=== PATIENT | female | born 2000 | race Caucasian/White ===

== ENCOUNTER → 2024-05-20 | Day surgery (SDC) | payer MEDICAID, SELFPAY ==
[2024-05-19 12:40] VITALS: BMI 35.1
[2024-05-19 13:58] LABS: Basophils # (Auto) 0.1 Thou/mm3 (0.0-0.2); Basophils % (Auto) 1 % (0-2.5); Eosinophils # (Auto) 0.4 Thou/mm3 (0.0-0.5); Eosinophils % (Auto) 3 % (0-10); Hematocrit 41.4 % (36.0-46.0); Hemoglobin 14.3 g/dL (12.0-16.0); Immature Granulocytes % (Auto) 0 % (0-0); Immature Granulocytes Auto 0.04 Thou/mm3 (0.00-0.00); Lymphocytes # (Auto) 2.8 Thou/mm3 (1.0-4.8); Lymphocytes % (Auto) 24 % (10-50); Mean Corpuscular HGB Conc 34.5 g/dl (31.0-37.0); Mean Corpuscular Hemoglobin 30.3 pg (25.0-35.0); Mean Corpuscular Volume 88 fL (80-100); Monocytes # (Auto) 0.7 Thou/mm3 (0.0-0.8); Monocytes % (Auto) 6 % (0-12); Neutrophils # (Auto) 7.7 Thou/mm3 (1.8-7.7); Neutrophils % (Auto) 66 % (37-80); Nucleated Red Blood Cell % 0 /100 WBC (0); Platelet Count 317 Thou/mm3 (140-440); RDW Standard Deviation 40.3 fL (36.4-46.3); Red Blood Count 4.72 Miln/mm3 (4.00-5.20); White Blood Count 11.7 Thou/mm3 (3.6-11.0)
[2024-05-19 14:04] LABS: Anion Gap 5 (7-16); BUN/Creatinine Ratio 20 Ratio (12-20); Blood Urea Nitrogen 12 mg/dL (9-23); Calcium 9.9 mg/dL (8.3-10.6); Carbon Dioxide 27.6 mMol/L (20.0-31.0); Chloride 107 mMol/L (98-107); Creatinine (Component) 0.6 mg/dL (0.6-1.3); Estimated Creatinine Clearance 128.9 mL/min (>60); Glucose 79 mg/dL (74-106); Osmolality,Calculated 278 (275-295); Potassium 3.9 mMol/L (3.4-5.1); Sodium 140 mMol/L (136-145); eGFR > 60 See Note
[2024-05-19 14:12] LABS: HCG,Qualitative Serum Negative
--- NOTE | 2024-05-19 15:16 | SUR.PREOP ---
Pt notified to come in at 0830 tomorrow for surgery.
[2024-05-20 09:45] VITALS: BP 119/65; PULSE 76; RESP 12; TEMP 36.8; O2SAT 99; BMI 34.1
[2024-05-20] MEDS: RINGERS LACTATED 500 ML 500 ML 20 ML IV (09:57)
== END | disposition home or self-care (01) ==
LOC: S2EX 09:10
PROVIDERS: PCP Family Medicine; Referring Provider Obstetrics & Gynecology; Visit Provider Obstetrics & Gynecology
PROC: (CPT 58720; principal; 2024-05-20 10:30)
DX: Z30.9 Encounter for contraceptive management, unspecified (principal); Z53.9 Procedure and treatment not carried out, unspecified reason
CPT/HCPCS: 58661; 36415; 80048; 84703; 85025; 86850; 86900; 86901; J3490; J7120